=== PATIENT | female | born 1985 | race Caucasian/White ===

== ENCOUNTER 2016-05-07 02:32 | Emergency (ER) | payer OTHER ==
[~2016-05-07] VITALS: Ht 172.7 cm; Wt 68.0 kg
[~2016-05-07 02:32] MED LIST: AMOXICILLIN500 M1 PO; DICLOFENAC POTA50 M1 PO; JUNEL FE 1/20 21 TAB PO; MOTRIN800 MG PO; TORADOL10 MG PO; TYLENOL WITH C1 EACH PO; VICODIN5-300 PO
--- NOTE | 2016-05-07 02:38 | ED AMS/SEIZURE/WEAK/DIZZY ---
History of Present Illness General Chief Complaint: ETOH/Drug Related Complaint Stated Complaint: BIBA ETOH Source: patient Exam Limitations: no limitations Vital Signs & Intake/Output Vital Signs & Intake/Output Vital Signs Date Time Temp Pulse Resp B/P Pulse O2 O2 Flow FiO2 Ox Delivery Rate 05/07 0732 96.8 05/07 0656 96.8 74 18 115/70 96 Room Air 05/07 0604 97.2 77 18 99/62 96 Room Air 05/07 0557 87 18 116/67 99 Room Air 05/07 0457 97.3 76 18 89/53 97 Room Air 05/07 0330 99 Room Air 05/07 0248 78 17 88/54 98 Room Air Allergies Coded Allergies: NO KNOWN ALLERGIES (01/24/15) Reconcile Medications Amoxicillin 500 MG TAB 1 TAB PO TID dental Diclofenac Potassium 50 MG TABLET 1 TAB PO TID PRN PAIN HYDROCODONE/ACETAMINOPHEN (Hydrocodon-Acetaminophen 5-325) 1 TAB TAB 1 TAB PO Q6H PRN pain Ibuprofen (Motrin) 800 MG TAB 1 TAB PO Q8H PRN PAIN Ketorolac Tromethamine (Toradol) 10 MG TAB 1 TAB PO TID PAIN NORETHINDRONE-E.ESTRADIOL-IRON (Junel Fe 1 MG-20 Mcg Tablet) 1 MG-20 MCG (21)/75 MG (7) TABLET 1 TAB PO DAILY CONTROL (Reported) Tylenol With Codeine (Tylenol With Codeine #3 Tablet) 300 MG-30 MG TABLET 1-2 TAB PO Q6P PRN dental pain Triage Nurses Notes Reviewed? yes Onset: Gradual Duration: hour(s): Timing: recent history Injury Environment: home Severity: moderate, severe Modifying Factors: Improves With: rest. Associated Symptoms: vomiting HPI: 31 yo woman presents with mental status change and lethargy. Per the medics, she was at a dinner green party where she consumed a large amount of alcohol rapidly Her found her unresponsive soon thereafter. She vomited. She urinated upon herself. There was no witnessed seizure. No trauma. She arrives somnolent and minimally arousable. (LEONARDO HAGAN,REBEKAH Paige) Past History Travel History Traveled to [place] past 21 day No Medical History Any Pertinent Medical History? see below for history Neurological: NONE EENT: NONE Cardiovascular: NONE Respiratory: NONE Gastrointestinal: NONE Hepatic: NONE Renal: NONE Musculoskeletal: NONE Psychiatric: NONE Endocrine: NONE Surgical History Surgical History: non-contributory Psychosocial History What is your primary language Telugu Family History Hx Contributory? No (LEONARDO HAGAN,REBEKAH Paige) Review of Systems Review of Systems Constitutional: Reports: no symptoms. EENTM: Reports: no symptoms. Respiratory: Reports: no symptoms. Cardiovascular: Reports: no symptoms. GI: Reports: no symptoms. Genitourinary: Reports: no symptoms. Musculoskeletal: Reports: no symptoms. Skin: Reports: no symptoms. Neurological/Psychological: Reports: no symptoms. Hematologic/Endocrine: Reports: no symptoms. Immunologic/Allergic: Reports: no symptoms. All Other Systems: Reviewed and Negative (LEONARDO HAGAN,REBEKAH Paige) Physical Exam Physical Exam General Appearance: well developed/nourished, lethargic, intoxicated Head: atraumatic, normal appearance, vomitus in hair Eyes: Bilateral: normal appearance, PERRL, EOMI. Ears, Nose, Throat: normal pharynx, normal ENT inspection Neck: normal inspection, supple, full range of motion Respiratory: normal breath sounds, chest non-tender, no respiratory distress, quiet respiration, lungs clear Cardiovascular: regular rate/rhythm Gastrointestinal: normal bowel sounds, soft, non-tender, no organomegaly Back: normal inspection Extremities: normal range of motion Neurologic/Psych: no motor/sensory deficits, awake, alert, oriented x 3 Skin: intact, normal color, warm/dry Core Measures ACS in differential dx? No CVA/TIA Diagnosis: No Severe Sepsis Present: No Septic Shock Present: No (LEONARDO HAGAN,REBEKAH Paige) Progress Differential Diagnosis: alcohol intoxication, dehydration, drug intoxication, electrolyte imbalance Plan of Care: Orders Procedure Date/time Status Patient Safety Monitor 05/07 044 Active URINE DRUG SCREEN FOR ER ONLY 05/07 246 Complete HUMAN BETA HCG SCREEN 05/07 246 Complete ETHANOL 05/07 246 Complete COMPREHENSIVE METABOLIC PANEL 05/07 246 Complete CBC WITHOUT DIFFERENTIAL 05/07 246 Complete Laboratory Tests 05/07/16 0314: Urine Opiates Screen < 100.00, Methadone Screen < 40, Barbiturate Screen < 60, Ur Phencyclidine Scrn < 6.00, Amphetamines Screen < 100, U Benzodiazepines Scrn < 85, Urine Cocaine Screen < 50, Urine Cannabis Screen < 5.00 05/07/16 0255: Anion Gap 17 H, Estimated GFR > 60, BUN/Creatinine Ratio 12.0, Glucose 96, Calcium 8.4, Total Bilirubin 0.3, AST 19, ALT 27, Alkaline Phosphatase 38, Total Protein 6.8, Albumin 4.1, Globulin 2.7, Albumin/Globulin Ratio 1.5, Total Beta HCG NEGATIVE, CBC w Diff NO MAN DIFF REQ, RBC 4.28, MCV 89.1, MCH 29.5, RDW 13.9 , MPV 7.4, Gran % 66.3, Lymphocytes % 27.8, Monocytes % 4.8, Eosinophils % 0.7, Basophils % 0.4, Absolute Granulocytes 7.1 H, Absolute Lymphocytes 3.0, Absolute Monocytes 0.5, Absolute Eosinophils 0.1, Absolute Basophils 0, PUBS MCHC 33.1, Serum Alcohol 316.0 Patient discharged home by Dr. Thomas. is here to pick her up. (MARNI HAGAN,ENEIDA) Diagnostic Imaging: Viewed by Me: Radiology Read. Discussed w/RAD: Radiology Read. Radiology Impression: right elbow... no fx, right knee... no fx. Initial ED EKG: none Hand-Off Endorsed To: ENEIDA GRIDER MD Endorsed Time: 0700 Pending: other (awaiting ride) Comments: PATIENT: DEBI SUNG PRESENT AGE: 31 PATIENT ACCOUNT NO: [id number] : 85 LOCATION: [facility] ORDERING PHYSICIAN: REBEKAH THOMAS MD SERVICE DATE: 05/07/16 EXAM TYPE: RAD - XRY-ELBOW 3 OR MORE VIEWS, R EXAMINATION: XR ELBOW, RIGHT CLINICAL INFORMATION: Fall. Abrasion. COMPARISON: None TECHNIQUE: Two views of the right elbow. FINDINGS: No fracture or dislocation. Alignment is anatomic. Joint spaces are maintained. No joint effusion. The soft tissues are unremarkable. IMPRESSION: Unremarkable right elbow. DICTATED BY: STUART AGUILAR MD DATE/TIME DICTATED:05/07/16556 CORPORATE SERVICES MANAGER:KG DATE/TIME TRANSCRIBED:05/07/16556 CONFIDENTIAL, DO NOT COPY WITHOUT APPROPRIATE AUTHORIZATION. <Electronically signed in Other Vendor System> SIGNED BY: STUART AGUILAR MD 05/07 0601 (LEONARDO HAGAN,REBEKAH Paige) Departure Departure Disposition: HOME OR SELF CARE Condition: Stable Clinical Impression Primary Impression: Alcohol intoxication Referrals: PATIENT HAS NO PRIMARY CARE DR (PCP/Family) Departure Forms: Customer Survey General Discharge Information Comments 05/07/16, 4:47AM.... called to bedside... pt attempted to get out of bed... on exam, pt at baseline, but with mild abrasions of right elbow and right knee... otherwise unchanged... plan... will check head/cerv ct, right elbow/knee xray. pt safety monitor ordered. 05/07/16, 6:27am... pt is awake and alert... she would like to go home... she confers no head injury or headache. She is otherwise well. (LEONARDO HAGAN,REBEKAH Paige)
[2016-05-07 03:12] LABS: ABSOLUTE BASOPHIL COUNT 0 /CUMM (0.0-0.2); ABSOLUTE EOSINOPHIL COUNT 0.1 /CUMM (0.0-0.7); ABSOLUTE GRANULOCYTE CT 7.1 /CUMM (1.4-6.5); ABSOLUTE MONOCYTE COUNT 0.5 /CUMM (0.10-0.60); BASOPHIL % 0.4 % (0.0-2.0); EOSINOPHIL % 0.7 % (0-5); GRANULOCYTE % 66.3 % (42.2-75.2); HEMATOCRIT 38.1 % (37-47); MEAN CORPUSCULAR HGB 29.5 PG (27.0-31.0); MEAN CORPUSCULAR HGB CONC 33.1 G/DL (33.0-37.0); MEAN CORPUSCULAR VOLUME 89.1 FL (81.0-99.0); MEAN PLATELET VOLUME 7.4 FL (7.4-10.4); PLATELET COUNT 219 /CUMM (130-400); RBC DISTRIBUTION WIDTH 13.9 % (11.5-14.5); RED BLOOD CELL CT 4.28 /CUMM (4.20-5.40); WHITE BLOOD CELL COUNT 10.8 /CUMM (4.8-10.8)
--- NOTE | 2016-05-07 06:01 | RADIOLOGY REPORT ---
EXAMINATION: XR ELBOW, RIGHT CLINICAL INFORMATION: Fall. Abrasion. COMPARISON: None TECHNIQUE: Two views of the right elbow. FINDINGS: No fracture or dislocation. Alignment is anatomic. Joint spaces are maintained. No joint effusion. The soft tissues are unremarkable. IMPRESSION: Unremarkable right elbow.
--- NOTE | 2016-05-07 06:02 | RADIOLOGY REPORT ---
EXAMINATION: XR KNEE, RIGHT CLINICAL INFORMATION: Fall. Abrasion. COMPARISON: None. TECHNIQUE: Two views of the right knee FINDINGS: No evidence of acute fracture or subluxation. The compartmental joint spaces are grossly maintained. No joint effusion. The soft tissues are unremarkable. IMPRESSION: Unremarkable examination.
[2016-05-07 06:56] VITALS: BP 115/70
== END 2016-05-07 08:03 ==
LOC: ERH 02:32
PROVIDERS: Pediatrics
DX: F10.129 Alcohol abuse with intoxication, unspecified (principal); S50.311A Abrasion of right elbow, initial encounter; S80.211A Abrasion, right knee, initial encounter; R41.82 Altered mental status, unspecified; X58.XXXA Exposure to other specified factors, initial encounter
CPT/HCPCS: 73080-RT; 73562-RT; 80307; 96360; 96361; G0480

== ENCOUNTER 2017-11-11 08:44 | Emergency (ER) | payer OTHER ==
[~2017-11-11] VITALS: Ht 180.3 cm; Wt 85.7 kg
--- NOTE | 2017-11-11 09:42 | ED GENERAL ADULT ---
History of Present Illness General Chief Complaint: Hand or Wrist Injury Stated Complaint: FISH HOOK IN FINGER Source: patient Exam Limitations: no limitations Allergies Coded Allergies: NO KNOWN ALLERGIES (01/24/15) Reconcile Medications Amoxicillin 500 MG TAB 1 TAB PO TID dental Ciprofloxacin HCl (Cipro) 500 MG TABLET 1 TAB PO BID infection prophylaxis Diclofenac Potassium 50 MG TABLET 1 TAB PO TID PRN PAIN Doxycycline Hyclate 100 MG CAPSULE 1 CAP PO BID infection prophylaxis HYDROCODONE/ACETAMINOPHEN (Hydrocodon-Acetaminophen 5-325) 1 TAB TAB 1 TAB PO Q6H PRN pain Ibuprofen 600 MG TABLET 1 TAB PO TID PRN pain with food Ibuprofen (Motrin) 800 MG TAB 1 TAB PO Q8H PRN PAIN Ketorolac Tromethamine (Toradol) 10 MG TAB 1 TAB PO TID PAIN NORETHINDRONE-E.ESTRADIOL-IRON (Junel Fe 1 MG-20 Mcg Tablet) 1 MG-20 MCG (21)/75 MG (7) TABLET 1 TAB PO DAILY CONTROL (Reported) Tylenol With Codeine (Tylenol With Codeine #3 Tablet) 300 MG-30 MG TABLET 1-2 TAB PO Q6P PRN dental pain Triage Note: C/O PAIN IN LEFT THUMB, LEFT THUMB, OCCURRED 1 HOUR AGO. UP TO DATE WITH TETANUS. Triage Nurses Notes Reviewed? yes Onset: Abrupt Duration: continues in ED Timing: no prior history Severity Numbers: 8 Modifying Factors: Worsens With: movement. : No Patient currently breastfeeds: No HPI: 32-year-old female presented to the emergency department reporting that at about 9 AM she was out fishing and she had caught a fish, and when she tried to get the hook off, a prong from the hook went into her right thumb. She states she tried to remove it immediately however because of the position with her nail she was unable to do so. Patient reports pain 8 out of 10. She does state that her Tdap is up-to-date within the last year. She declines any significant medical history or allergies. (Ritika Hutchinson) Vital Signs & Intake/Output Vital Signs & Intake/Output Vital Signs Date Time Temp Pulse Resp B/P B/P Pulse O2 O2 Flow FiO2 Mean Ox Delivery Rate 11/11 1039 98.1 88 20 120/80 96 Room Air 11/11 0848 98.4 80 18 124/83 95 Room Air (Rekha HAGAN,Reginaldo German) Past History Travel History Traveled to [place] past 21 day No Medical History Any Pertinent Medical History? none Neurological: NONE EENT: NONE Cardiovascular: NONE Respiratory: NONE Gastrointestinal: NONE Hepatic: NONE Renal: NONE Musculoskeletal: NONE Psychiatric: NONE Endocrine: NONE Tetanus Status: up to date Surgical History Surgical History: non-contributory Psychosocial History What is your primary language Azeri Tobacco Use: Never used ETOH Use: denies use Family History Hx Contributory? No (Ritika Hutchinson) Review of Systems Review of Systems Constitutional: Reports: see HPI. EENTM: Reports: no symptoms. Respiratory: Reports: no symptoms. Cardiovascular: Reports: no symptoms. GI: Reports: no symptoms. Genitourinary: Reports: no symptoms. Musculoskeletal: Reports: see HPI. Skin: Reports: see HPI. Neurological/Psychological: Reports: no symptoms. Hematologic/Endocrine: Reports: no symptoms. Immunologic/Allergic: Reports: no symptoms. All Other Systems: Reviewed and Negative (Ritika Hutchinson) Physical Exam Physical Exam General Appearance: well developed/nourished, alert, awake, mild distress Head: atraumatic, normal appearance Eyes: Bilateral: normal appearance. Ears, Nose, Throat: hearing grossly normal Neck: full range of motion Peripheral Pulses: 3+ radial (R), 3+ radial (L) Extremities: limited range of motion (slightly limited d/t pain), Right hand thumb with fish hook embedded in lateral finger, the end with the mayi is tenting the fingerpad but no protrusion through. very minimal bleeding. Tackle still attached to fish hook with metal ring. Neurologic/Psych: no motor/sensory deficits, awake, alert, oriented x 3, normal gait, normal mood/affect Skin: intact, normal color, warm/dry Core Measures ACS in differential dx? No CVA/TIA Diagnosis: No Sepsis Present: No Sepsis Focused Exam Completed? No (Ritika Hutchinson) Progress Differential Diagnoses I considered the following diagnoses in my evaluation of the patient: [thumb trauma, abscess/cellulitis] Plan of Care: Current Medications Sig/Melissa Start time Last Medication Dose Stop Time Status Admin Lidocaine 20 ML ONE ONE 11/11 944 UNVr (Lidocaine 2%) 11/11 945 32-year-old female had presented to the emergency department reporting fishhook in right thumb that occurred this morning while fishing. Patient was numbed up and fishhook was removed easily. It was not felt that a x-ray was required. Patient was prescribed antibiotics for prophylaxis. Prescribed ibuprofen as needed for pain. Patient was advised to follow-up with primary care provider this week to evaluate for any infection. Patient was advised to return to the emergency department if she were to develop any purulent drainage, redness that extends upwards towards her hand and arm, fevers/chills, nausea/vomiting, or any new or worsening symptoms. Initial ED EKG: none (Ritika Hutchinson) Comments: 11/11/2017 10:23:17 AM patient's neck showed removed after appropriate digital block with 2% lidocaine. The fishhook was advanced until the mayi was visible and removed. The fishhook was then "backed out" without difficulty. I do not feel that this fishhook has impacted the bone and so x-rays would be of low yield. Patient agrees. The procedure was performed by the emergency department physician's preschool assistant teacher with my direct observation of the entire procedure. (Rekha HAGAN,Reginaldo German) Departure Departure Disposition: HOME OR SELF CARE Condition: Stable Clinical Impression Primary Impression: Fish hook injury of finger of left hand Qualifiers: Encounter type: initial encounter Qualified Code: S69.92XA - Unspecified injury of left wrist, hand and finger(s), initial encounter Referrals: Suraj Pond MD Patient Has No Primary Care Dr (PCP/Family) Additional Instructions: Keep area clean and dry. Take antibiotics as directed to prevent infection. Take ibuprofen as needed for pain. Follow-up with your primary care provider this week. Return to the emergency department with any concerns for secondary infection, including purulent discharge, redness surrounding the area, worsening pain or any other concerning symptoms. Departure Forms: Customer Survey General Discharge Information Prescriptions: Current Visit Scripts Ciprofloxacin HCl (Cipro) 1 TAB PO BID #20 TAB Doxycycline Hyclate 1 CAP PO BID #20 CAP Ibuprofen 1 TAB PO TID PRN pain #30 TAB with food (Ritika Hutchinson) Procedures Comments Comments: Betadine was used to clean patient's right hand/thumb. A digital block was performed on patient's right thumb with 2% lidocaine about 3 cc. Patient tolerated well. After appropriate anesthesia with lidocaine, the fishhook was grasped using appropriate tools and hook was pushed through the skin. The end of the hook with the mayi was clipped off and the rest of the fishhook was removed easily. Patient tolerated well. Bacitracin was applied to the area and bandage applied. (Ritika Hutchinson) Critical Care Note Critical Care Note Critical Care Time: non-applicable (Ritika Hutchinson)
[2017-11-11] MEDS ORDERED: IBUPROFEN600 M1 PO (10:38)
[2017-11-11] MEDS ORDERED: DOXYCYCLINE HY100 M2 PO (10:38)
[2017-11-11] MEDS ORDERED: CIPRO500 M1 PO (10:38)
[2017-11-11 10:39] VITALS: BP 120/80
== END 2017-11-11 10:42 ==
LOC: ERH 08:44
DX: S61.041A Puncture wound with foreign body of right thumb without damage to nail, initial encounter (principal); W45.8XXA Other foreign body or object entering through skin, initial encounter; Y93.89 Activity, other specified
CPT/HCPCS: J2001